=== PATIENT | female | born 1945 ===

== ENCOUNTER 2017-11-29 19:03 | Inpatient (IN) ==
[2017-11-29] MEDS ORDERED: ONDANSETRON 4 MG/2 ML VIAL IV PRN (21:30)
[2017-11-29] MEDS ORDERED: GLUCAGON 1 MG VIAL IM PRN (22:00)
[2017-11-29] MEDS ORDERED: DEXTROSE 50% 25 GM/50 ML VIAL IV PRN (22:00)
[2017-11-29] MEDS: ALBUTEROL/IPRATROPIUM 3 ML NEB RESP TX SCH ×2 (22:03→23:00)
[2017-11-29] MEDS: AZITHROMYCIN INJ 500 MG in SODIUM CHLORIDE 0.9% 250 ML IV SCH (23:38)
[2017-11-30] MEDS: ALBUTEROL/IPRATROPIUM 3 ML NEB RESP TX SCH ×5 (03:04→20:00)
[2017-11-30 05:22] LABS: Basophils % 0.6 % (0.0-0.8); Eosinophils # 0.4 10*3/uL (0.0-0.87); Eosinophils % 6.1 % (0.00-10.9); Hematocrit 27.1 VOL% (35.7-47.0); Hemoglobin 8.2 GM/DL (12.0-16.0); Immature Granulocytes % 0.6 %; Immature Granulocytes Absolute 0.04 #; Lymphocytes # 0.8 10*3/uL (1.4-4.0); Lymphocytes % 12.8 % (21.3-54.2); Mean Corpuscular HGB Conc 30.3 GM/DL (32-36); Mean Corpuscular Hemoglobin 29 PG (27-34); Mean Corpuscular Volume 96.1 FL (87-102); Monocytes # 0.6 10*3/uL (0.11-0.8); Monocytes % 10.2 % (1.7-12.7); Neutrophils # 4.4 10*3/uL (1.4-7.4); Neutrophils % 69.7 % (38.7-73.9); Platelet Count 256 T/CUMM (130-400); Red Blood Count 2.82 MC/CUMM (3.8-5.5); Red Cell Distribution Width 13.4 % (9.3-17.3); White Blood Count 6.3 T/CUMM (4-12)
[2017-11-30 05:50] LABS: Calcium 6.3 MG/DL (8.5-10.1); Osmolality,Calculated 309.3 MOS/KG (273-304); Potassium 5.8 MMOL/L (3.5-5.1)
[2017-11-30] MEDS: INSULIN LISPRO 100 UNIT/ML SUBCUT SCH ×4 (08:50→22:23)
[2017-11-30] MEDS: cefTRIAXone 1,000 MG in SYRINGE 1 EACH IV SCH (09:08)
[2017-11-30] MEDS: AZITHROMYCIN INJ 500 MG in SODIUM CHLORIDE 0.9% 250 ML IV SCH (22:16)
[2017-11-30] MEDS: BUMETANIDE 1 MG/4 ML VIAL IV SCH (22:29)
[2017-12-01] MEDS: ALBUTEROL/IPRATROPIUM 3 ML NEB RESP TX SCH ×6 (00:19→21:37)
[2017-12-01] MEDS: cefTRIAXone 1,000 MG in SYRINGE 1 EACH IV SCH (10:20)
[2017-12-01] MEDS: BUMETANIDE 1 MG/4 ML VIAL IV SCH ×2 (10:21→16:27)
[2017-12-01] MEDS: INSULIN LISPRO 100 UNIT/ML SUBCUT SCH ×4 (10:21→22:07)
[2017-12-01 10:42] LABS: Basophils % 0.2 % (0.0-0.8); Eosinophils # 0.7 10*3/uL (0.0-0.87); Eosinophils % 8.3 % (0.00-10.9); Hematocrit 23.5 VOL% (35.7-47.0); Hemoglobin 7.3 GM/DL (12.0-16.0); Immature Granulocytes % 0.5 %; Immature Granulocytes Absolute 0.04 #; Lymphocytes # 1.2 10*3/uL (1.4-4.0); Lymphocytes % 14.4 % (21.3-54.2); Mean Corpuscular HGB Conc 31.1 GM/DL (32-36); Mean Corpuscular Hemoglobin 30 PG (27-34); Mean Corpuscular Volume 95.9 FL (87-102); Mean Platelet Volume 10.5 FL (9.6-12.0); Monocytes # 0.9 10*3/uL (0.11-0.8); Monocytes % 10.9 % (1.7-12.7); Neutrophils # 5.5 10*3/uL (1.4-7.4); Neutrophils % 65.7 % (38.7-73.9); Platelet Count 225 T/CUMM (130-400); Red Blood Count 2.45 MC/CUMM (3.8-5.5); Red Cell Distribution Width 13.7 % (9.3-17.3); White Blood Count 8.4 T/CUMM (4-12)
[2017-12-01 11:09] LABS: Osmolality,Calculated 313.3 MOS/KG (273-304); Potassium 5.5 MMOL/L (3.5-5.1)
[2017-12-01 11:19] LABS: Calcium 5.6 MG/DL (8.5-10.1)
[2017-12-01] MEDS: AZITHROMYCIN INJ 500 MG in SODIUM CHLORIDE 0.9% 250 ML IV SCH (22:01)
[2017-12-02] MEDS: ALBUTEROL/IPRATROPIUM 3 ML NEB RESP TX SCH ×6 (01:02→20:34)
[2017-12-02 04:49] LABS: Basophils % 0.2 % (0.0-0.8); Eosinophils # 0.7 10*3/uL (0.0-0.87); Eosinophils % 8.8 % (0.00-10.9); Hematocrit 22.9 VOL% (35.7-47.0); Immature Granulocytes Absolute 0.08 #; Lymphocytes # 1.1 10*3/uL (1.4-4.0); Lymphocytes % 12.7 % (21.3-54.2); Mean Corpuscular HGB Conc 30.6 GM/DL (32-36); Mean Corpuscular Hemoglobin 30 PG (27-34); Mean Corpuscular Volume 97.4 FL (87-102); Mean Platelet Volume 10.6 FL (9.6-12.0); Monocytes % 11.6 % (1.7-12.7); Neutrophils # 5.5 10*3/uL (1.4-7.4); Neutrophils % 65.7 % (38.7-73.9); Platelet Count 210 T/CUMM (130-400); Red Blood Count 2.35 MC/CUMM (3.8-5.5); Red Cell Distribution Width 13.9 % (9.3-17.3); White Blood Count 8.3 T/CUMM (4-12)
[2017-12-02 05:13] LABS: Osmolality,Calculated 309.4 MOS/KG (273-304); Potassium 5.9 MMOL/L (3.5-5.1)
[2017-12-02 05:17] LABS: Calcium 5.6 MG/DL (8.5-10.1)
[2017-12-02] MEDS: INSULIN LISPRO 100 UNIT/ML SUBCUT SCH ×4 (08:21→20:24)
[2017-12-02] MEDS: BUMETANIDE 1 MG/4 ML VIAL IV SCH ×2 (08:22→15:40)
[2017-12-02] MEDS: cefTRIAXone 1,000 MG in SYRINGE 1 EACH IV SCH (08:26)
[2017-12-02] MEDS ORDERED: EPOETIN ALFA 2,000 UNIT/1 ML VIAL IV PRN (13:13)
[2017-12-02] MEDS: CALCITRIOL 0.25 MCG CAPSULE PO SCH (13:53)
[2017-12-02] MEDS: SODIUM BICARBONATE 650 MG TABLET PO SCH ×2 (15:40→20:26)
[2017-12-02] MEDS: CALCIUM (CARBONATE) 500 MG TABLET PO SCH ×2 (17:03→20:26)
[2017-12-02] MEDS: hydrALAZINE 20 MG/1 ML VIAL IV PRN (20:25)
[2017-12-02] MEDS: AZITHROMYCIN INJ 500 MG in SODIUM CHLORIDE 0.9% 250 ML IV SCH (23:08)
[2017-12-03] MEDS: ALBUTEROL/IPRATROPIUM 3 ML NEB RESP TX SCH ×6 (00:50→19:59)
[2017-12-03 05:47] LABS: % Iron Saturation 14.6 % (18-50); Ferritin 77.9 ng/ml (8-252)
[2017-12-03 06:26] LABS: Hepatitis A Ab IgM Quant 0.11 Index; Hepatitis A Ab IgM Result Negative (Negative); Hepatitis B Core IgM Quant 0.05 Index; Hepatitis B Core IgM Result Negative (Negative); Hepatitis B Surface Ag Quant < 0.10 Index; Hepatitis B Surface Ag Result Negative (Negative); Hepatitis C Virus Ab Quant 0.04 Index; Hepatitis C Virus Ab Result Negative (Negative)
[2017-12-03 06:45] LABS: Albumin 2.4 G/DL (3.4-5.0); Calcium 6.4 MG/DL (8.5-10.1); Osmolality,Calculated 307.5 MOS/KG (273-304)
[2017-12-03 07:05] LABS: Potassium 6.3 MMOL/L (3.5-5.1)
[2017-12-03] MEDS: INSULIN LISPRO 100 UNIT/ML SUBCUT SCH ×4 (08:12→22:25)
[2017-12-03] MEDS: BUMETANIDE 1 MG/4 ML VIAL IV SCH ×2 (08:13→15:25)
[2017-12-03] MEDS: cefTRIAXone 1,000 MG in SYRINGE 1 EACH IV SCH (08:17)
[2017-12-03] MEDS: CALCITRIOL 0.25 MCG CAPSULE PO SCH (08:20)
[2017-12-03] MEDS: SODIUM BICARBONATE 650 MG TABLET PO SCH ×3 (08:20→22:25)
[2017-12-03] MEDS: CALCIUM (CARBONATE) 500 MG TABLET PO SCH ×4 (08:21→22:25)
[2017-12-03] MEDS ORDERED: SODIUM POLYSTYRENE SULFATE 15 GM/60 ML BOTTLE PO ONE (09:04)
[2017-12-03] MEDS ORDERED: SODIUM POLYSTYRENE SULFATE 15 GM/60 ML BOTTLE PO PRN (14:22)
[2017-12-03] MEDS: AZITHROMYCIN INJ 500 MG in SODIUM CHLORIDE 0.9% 250 ML IV SCH (22:25)
[2017-12-04] MEDS: ALBUTEROL/IPRATROPIUM 3 ML NEB RESP TX SCH ×7 (00:27→23:50)
[2017-12-04] MEDS ORDERED: HEPARIN 5,000 UNIT/1 ML VIAL ONE (05:40)
[2017-12-04] MEDS ORDERED: BUPIVACAINE 0.25% 50 ML VIAL ONE (05:41)
[2017-12-04] MEDS ORDERED: LIDOCAINE 2%/EPI 20 ML VIAL ONE (05:42)
[2017-12-04 06:14] LABS: Calcium 7.1 MG/DL (8.5-10.1); Osmolality,Calculated 311.3 MOS/KG (273-304); Potassium 5.6 MMOL/L (3.5-5.1)
[2017-12-04] MEDS: SODIUM CHLORIDE 0.9% 250 ML IV SCH (07:00)
[2017-12-04] MEDS ORDERED: fentaNYL 100 MCG/2 ML VIAL ONE (07:50)
[2017-12-04] MEDS ORDERED: PROPOFOL 200 MG/20 ML VIAL IV ONE (07:50)
[2017-12-04] MEDS ORDERED: ONDANSETRON 4 MG/2 ML VIAL ONE ×2 (07:51→08:27)
[2017-12-04] MEDS ORDERED: MIDAZOLAM 2 MG/2 ML VIAL ONE (07:51)
[2017-12-04] MEDS ORDERED: HYDROmorphone 2 MG/1 ML VIAL ONE (08:27)
[2017-12-04] MEDS ORDERED: HYDROmorphone 2 MG/1 ML VIAL IV PRN (08:30)
[2017-12-04] MEDS ORDERED: ONDANSETRON 4 MG/2 ML VIAL IV PRN (08:30)
[2017-12-04] MEDS: CALCIUM (CARBONATE) 500 MG TABLET PO SCH ×4 (09:49→21:31)
[2017-12-04] MEDS: CALCITRIOL 0.25 MCG CAPSULE PO SCH (09:50)
[2017-12-04] MEDS: SODIUM BICARBONATE 650 MG TABLET PO SCH ×3 (09:50→21:31)
[2017-12-04] MEDS: BUMETANIDE 1 MG/4 ML VIAL IV SCH ×2 (09:53→15:38)
[2017-12-04] MEDS: cefTRIAXone 1,000 MG in SYRINGE 1 EACH IV SCH (09:55)
[2017-12-04] MEDS: INSULIN LISPRO 100 UNIT/ML SUBCUT SCH ×4 (10:09→21:20)
[2017-12-04] MEDS: hydrALAZINE 20 MG/1 ML VIAL IV PRN (21:27)
[2017-12-05] MEDS: AZITHROMYCIN INJ 500 MG in SODIUM CHLORIDE 0.9% 250 ML IV SCH ×2 (01:55→21:53)
[2017-12-05] MEDS: ALBUTEROL/IPRATROPIUM 3 ML NEB RESP TX SCH ×5 (03:10→19:23)
[2017-12-05] MEDS: SODIUM CHLORIDE 0.9% 250 ML IV SCH ×2 (06:02→16:41)
[2017-12-05] MEDS: INSULIN LISPRO 100 UNIT/ML SUBCUT SCH ×4 (09:21→20:30)
[2017-12-05] MEDS ORDERED: TUBERCULIN SKIN TEST 0.1 ML SYRINGE INTRADERM ONE (11:08)
[2017-12-05] MEDS: BUMETANIDE 1 MG/4 ML VIAL IV SCH ×2 (16:40→17:00)
[2017-12-05] MEDS: SODIUM BICARBONATE 650 MG TABLET PO SCH ×3 (16:41→20:51)
[2017-12-05] MEDS: CALCIUM (CARBONATE) 500 MG TABLET PO SCH (16:42)
[2017-12-05] MEDS: CALCITRIOL 0.25 MCG CAPSULE PO SCH (16:59)
[2017-12-05] MEDS: cefTRIAXone 1,000 MG in SYRINGE 1 EACH IV SCH (17:02)
[2017-12-05] MEDS: CALCIUM ACETATE 667 MG CAPSULE PO SCH (18:04)
[2017-12-06] MEDS: ALBUTEROL/IPRATROPIUM 3 ML NEB RESP TX SCH ×3 (00:03→07:45)
[2017-12-06] MEDS: SODIUM BICARBONATE 650 MG TABLET PO SCH (08:56)
[2017-12-06] MEDS: BUMETANIDE 1 MG/4 ML VIAL IV SCH ×2 (08:56→09:01)
[2017-12-06] MEDS: CALCIUM ACETATE 667 MG CAPSULE PO SCH ×2 (08:56→14:28)
[2017-12-06] MEDS: cefTRIAXone 1,000 MG in SYRINGE 1 EACH IV SCH (09:02)
[2017-12-06] MEDS: INSULIN LISPRO 100 UNIT/ML SUBCUT SCH ×2 (09:10→12:02)
[2017-12-06] MEDS: CALCITRIOL 0.25 MCG CAPSULE PO SCH (10:09)
[2017-12-06] MEDS ORDERED: HEPARIN 10,000 UNIT/10 ML VIAL IV PRN (10:18)
[2017-12-06 11:57] VITALS: BP 177/78
[2017-12-06] MEDS: hydrALAZINE 20 MG/1 ML VIAL IV PRN (12:02)
== END 2017-12-06 12:44 | disposition swing bed (61) | DRG 193 ==
LOC: SUATTDRO 21:02 → N.TELEN 21:02
PROVIDERS: ADMIT Family Medicine; ATTEND Family Medicine